=== PATIENT | female | born 1935 | race Caucasian/White ===

== ENCOUNTER 2018-01-14 08:14 | Day surgery (SDC) | payer MEDICAID, MEDICARE ==
[~2018-01-14] VITALS: Ht 172.7 cm; Wt 81.6 kg
[2018-01-14] MEDS ORDERED: MUPIROCIN 2% OINT 1 APPLIC/GM SYR NASAL SCH (09:15)
[2018-01-14] MEDS ORDERED: NS 1000 ML IV SCH (09:15)
[2018-01-14] MEDS ORDERED: SODIUM CHLORID 0.9% 500 ML IV PRN (09:15)
[2018-01-14] MEDS ORDERED: CHLORHEXIDINE GLUCONATE 2 % 1 PACK (2 CLOTHS) TOPICAL SCH (09:15)
[2018-01-14] MEDS ORDERED: POVIDONE IODINE 5% (ANTISEPSIS KIT) 4 APPLICATIONS EACH NARE SCH (09:15)
[2018-01-14] MEDS ORDERED: LORazepam 1 MG TAB SL SCH (09:15)
[2018-01-14] MEDS ORDERED: VANCOMYCIN 1000 MG/NS 250 ML IV SCH ×2 (09:15)
[2018-01-14] MEDS ORDERED: NO Heparin, Lovenox, Coumadin at least 12 hours prior to procedure. PRN (09:15)
[2018-01-14] MEDS ORDERED: LACTATED RINGER'S 1000 ML IV PRN (09:15)
[2018-01-14] MEDS ORDERED: METOPROLOL TARTRATE 25 MG TAB PO PRN (09:15)
[2018-01-14] MEDS ORDERED: POVIDONE IODINE 5% (ANTISEPSIS KIT) 4 APPLICATIONS EACH NARE PRN (09:15)
[2018-01-14] MEDS ORDERED: CHLORHEXIDINE GLUCONATE 2 % 1 PACK (2 CLOTHS) TOPICAL PRN (09:15)
[2018-01-14 09:20] VITALS: BP 165/100; PULSE 76; RESP 18; O2SAT 99
[2018-01-14 09:25] LABS: AUTOMATED NEUTROPHIL # 1.8 TH/MM3 (1.8-7.7); BASOPHIL % 0.4 % (0.0-2.0); EOSINOPHIL # 0.1 TH/MM3 (0-0.4); EOSINOPHIL % 3.1 % (0.0-4.0); HEMATOCRIT 33.9 % (35.0-46.0); HEMOGLOBIN 11.5 GM/DL (11.6-15.3); LYMPH % 28.7 % (9.0-44.0); LYMPHOCYTE # 0.9 TH/MM3 (1.0-4.8); MEAN CORPUSCULAR HEMOGLOBIN 31.9 PG (27.0-34.0); MEAN CORPUSCULAR HGB CONC 33.9 % (32.0-36.0); MEAN PLATELET VOLUME 7.5 FL (7.0-11.0); MONO % 7.7 % (0.0-8.0); MONOCYTE # 0.2 TH/MM3 (0-0.9); NEUT % 60.1 % (16.0-70.0); PLATELET COUNT 199 TH/MM3 (150-450); RED CELL DISTRIBUTION WIDTH 14.1 % (11.6-17.2)
[2018-01-14] MEDS ORDERED: APIX2.5T PO (09:28)
[2018-01-14] MEDS ORDERED: SINE25TA PO (09:28)
[2018-01-14 09:37] LABS: INTERNATIONAL NORMALIZED RATIO 1.1 RATIO; PROTHROMBIN TIME - PATIENT 10.7 SEC (9.8-11.6)
[2018-01-14 09:53] LABS: BICARBONATE 26.4 MEQ/L (21.0-32.0); CALCIUM 8.6 MG/DL (8.5-10.1); CREATININE 0.92 MG/DL (0.50-1.00)
[2018-01-14] MEDS ORDERED: PROPOFOL 200 MG/20 ML AMP IV ONE (12:00)
[2018-01-14] MEDS ORDERED: DEXAMETHASONE SOD PHOS 4 MG/ML VIAL IV ONE (12:00)
[2018-01-14] MEDS ORDERED: ONDANSETRON HCL 4 MG/2 ML VIAL IV ONE (12:00)
[2018-01-14] MEDS ORDERED: LIDOCAINE HCL 1% PF 5 ML SYRINGE OTHER ONE (12:00)
[2018-01-14] MEDS ORDERED: LIDOCAINE HCL 2% 20 ML VIAL ONE (13:06)
[2018-01-14] MEDS ORDERED: LEVOFLOXACIN 500 MG PREMIX INJ 100 ML IV ONE (13:06)
[2018-01-14] MEDS ORDERED: VANCOMYCIN 500 MG VIAL ONE (13:06)
--- NOTE | 2018-01-14 13:35 | EKG ---
Date Performed: 01/14/2018 Time Performed: 09:22:56 PTAGE: 82 years EKG: Sinus rhythm . Right bundle branch block Low QRS voltages in precordial leads Abnormal ECG NO PREVIOUS TRACING DOCTOR: Kennedy Robins Interpretating Date/Time 01/14/2018 13:34:16
--- NOTE | 2018-01-14 14:03 | PD.CARD ---
PPM GENERATOR REPLACEMENT PROCEDURE DATE: Jan 14, 2018 PPM GENERATOR REPLACEMENT PROC PROCEDURE PERFORMED Permanent pacemaker removal, permanent pacemaker replacement, pocket revision. Ms. Forman is a 82 -year-old female with history of bradycardia, pacemaker end of life referred for pacemaker generator replacement. The risks, the nature and the benefit of the procedure were clearly stated to her. The risks include pneumothorax, cardiac perforation, stroke and even . The patient understood and agreed to proceed. PROCEDURE After written informed consent was obtained, the patient was brought to the EP lab where was prepped and draped in the sterile fashion. Conscious sedation was initiated using intravenous Versed and introducer intravenous fentanyl. Once sedation was verified, the left infraclavicular area over the generator was anesthetized with 2% Xylocaine. Using a #11 scalpel, a 3 centimeter incision was made over the existing generator. Dissection was then taken down to deep fascial layer using Bovie cautery and blunt dissection. Once exposed, the generator was removed from the pocket. The pocket was expanded. Scar tissue was removed around the leads. Then, the leads were disconnected and tested. At that point, the pocket was copiously irrigated using antibiotic solution. The leads were connected to the new generator and placed into the pocket. The pacemaker was interrogated. She was A-sensing, V-pacing. I did proceed with wound closure. The deep fascial layer was approximated with 2-0 Vicryl suture in a continuous fashion. The subcutaneous layer was approximated with 2-0 Vicryl suture in a continuous fashion. Dermabond adhesive was applied to the wound followed by a sterile pressure dressing. There was no complication. The patient tolerated procedure. Blood loss minimal. EXPLANTED HARDWARE The explanted permanent pacemaker is a [employer] Model # 1290 serial number [id number]. For information about the existing leads, please refer to previous dictation. IMPLANTED HARDWARE The implanted permanent pacemaker is a [employer]) model number L311, serial number [id number]. THRESHOLDS The right atrial pacing threshold in bipolar mode was 1.1 volt at 0.4 milliseconds. Lead impedance 350 ohms and P wave at 2.7 millivolts. The right ventricular pacing threshold in bipolar mode was 0.8 volts at 0.4 milliseconds. Lead impedance 380 ohms. SETTINGS The device is set in a DDD60. Upper limit 110 beats per minute. Hysteresis and mode switch are on. CONCLUSIONS Successful permanent pacemaker removal, permanent pacemaker implantation, pocket revision. COMMENT AND RECOMMENDATIONS The patient will be transferred to the telemetry unit. She will be observed. The patient will be discharged home later on today. Brendan Ryan MD Jan 14, 2018 14:03
--- NOTE | 2018-01-14 14:06 | CATHPROC ---
Patient Name: MARIAELENA ORNELAS Study #: [id number] Initial MD: Brendan Ryan Date of : 1935 Study Date: 01/14/2018 Cardiac Catheterization Report 01/14/2018 2:08:57 PM Financial #: [id number] 1 of 8 Patient Name: MARIAELENA ORNELAS Study #: [id number] Initial MD: Brendan Ryan Date of : 1935 Study Date: 01/14/2018 Entire Case Report Patient Information Patient Name MARIAELENA ORNELAS Date of 1935 Age 82 years Financial # [id number] Gender F AlternateID Lab Number 6 Room Number DC05 Height (in) 69.0 Height (cm) 175.3 BSA 1.97 Weight (lbs) 179.5 Weight (kg) 81.6 Patient Address/Phone Number Home Address [facility] Home Phone Number [address] [facility] [address] [address] Study Information Study Number Admission Scheduled Start Study Start [id number] Jan 14 2018 8:14AM 01/14/2018 Jan 14 2018 12:40PM [place] [facility] Cardiac Pacer/ICD Admit Source Facility Department Other [facility] Physician and Clinical Staff Initial Brendan Rendon Process Control Board Operator Kathy Pereyra,JEB Process Control Board Operator Dayana Herrera RN Other Anesthesia, NIGHT WORKER Recorder Lilian Arellano,PHYSICIAN COMPENSATION ANALYST TECH2 Scrub Kathy Sauceda,RT(R) 01/14/2018 2:08:57 PM Financial #: [id number] 2 of 8 Patient Name: MARIAELENA ORNELAS Study #: [id number] Initial MD: Brendan Ryan Date of : 1935 Study Date: 01/14/2018 Equipment Time Repair Technician Description Size Mfg Part Number Used/Scraped [employer]/ EP 13:51 PACEMAKER, ACCOLADE MRI DR ADKINS L311 Used PACER DERMABOND, ADHESIVE SKIN VM12 12:52 CORDIS/PACER * Used GLUE MINI *[id number] TP-1103 12:52 MEDLINE IND[employer]RIES SUTURE, STRIP PLUS 1/2" * Used *[id number] 12:52 MEDLINE PACER SKELTON, LIMB * 2530 *[id number] Used [id number] 12:52 MEDLINE PACER PACK, PACER CUSTOM * Used *[id number] 13:16 Needle Sponge Count 2 22 Used 13:15 Needle Sponge Count 2 2 Used 13:15 Needle Sponge Count 30 1 Used SUTURE, 2-0 VICRYL [CT1] ([id number]) [id number] 12:52 [employer],WARM AIR CCL * Used *[id number] [facility] PAD, ELECTROSURGICAL 12:52 * [id number] *[id number] Used SURGICAL GROUNDING ORANGE [id number] 12:59 VITATRON MED[employer] PLASMABLADE, PEAD 3.0S * Used *[id number] Equipment Model, Serial, Lot Number and Expiration Data Description Model Number Serial Number Lot Number Expiration Date PACEMAKER, ACCOLADE MRI L311 [id number] 10-26-2019 Insurance Information Insurance Payor Private Health Insurance Third Republican Third Republican Number [employer] MEDICARE History: Current Medications Medication Dosage/Unit Route Frequency Last Date/Time Taken ELIQUIS History: Allergies Allergy Reaction Penicillins Sulfa (Sulfonamide Antibiotics) iodine 01/14/2018 2:08:57 PM Financial #: [id number] Patient Name: MARIAELENA ORNELAS Study #: [id number] Initial MD: Brendan Ryan Date of : 1935 Study Date: 01/14/2018 History: Risk Factors Family History of Dyslipidemia Previous Heart Failure Premature CAD Yes Yes Yes Cerebrovascular Peripheral Artery Disease Disease History: Arrhythmias Selection Items Atrial fibrillation History: Other Current Smoker No Labs Hgb (g/dl) Hct (%) WBC (l/cumm) Platelets (thousands) 11.60-17.00 35.00-51.00 4.00-11.00 150.00-450.00 11.0 33 3.6 199 Glucose (mg/dl) BUN (mg/dl) Creatinine (mg/dl) BUN:Creatinine (1:x) 74.00-106.00 7.00-18.00 0.50-1.30 10.00-20.00 75 21 0.9 23.3 Na (meq/l) K (meq/l) 136.00-145.00 3.50-5.10 141 4.1 INR (PTT:PT) 0.90-1.10 1.1 CPK-MB (ng/ML) 0.50-3.60 Not Drawn Medication Medication Total Dose (Bolus/Oral) Medication Total Dosage/Unit 2% XYLOCAINE 50 mL Medications (Bolus/Oral) Medication Time Given Dosage/Unit Administered By Reason 2% XYLOCAINE 01/14/2018 1:39:11 PM 50 mL Brendan Ryan 50 mL 2% XYLOCAINE given in lab by Brendan Ryan via Subcutaneous to the left upper chest. 01/14/2018 2:08:57 PM Financial #: [id number] Patient Name: MARIAELENA ORNELAS Study #: [id number] Initial MD: Brendan Ryan Date of : 1935 Study Date: 01/15/20 18 Medication (Drip) Medication Time Given Dosage/Unit Concentration/Unit Diluent (ml) Solutio n IV Solutions 01/14/2018 1:09:20 PM 0 mL (IV) 500 NaCl .9 Patient arrived on IV Solutions via Peripheral IV. Pump/Drip Flow = 20 ml/hr using NaCl .9. IV Solutions 01/14/2018 1:09:21 PM 0 mL (IV) 500 NaCl .9 Patient arrived on IV Solutions via Peripheral IV. Pump/Drip Flow = 20 ml/hr using NaCl .9. LEVAQUIN 01/14/2018 1:25:33 PM 500 mg 500 mg LEVAQUIN given in lab by Anesthesia, NIGHT WORKER in Right Antecubital via Peripheral IV. Ordered by Brendan Parnell. VANCOMYCIN DRIP 01/14/2018 1:25:52 PM 1 g 1 g VANCOMYCIN DRIP given in lab by Anesthesia, NIGHT WORKER in Right Antecubital via Peripheral IV. Ordered by Brendan Ryan. Initial Case Assessment Cardiovascular HR Rhythm Chest Pain 68 sr 0 Neurological State Oriented to time-place- Alert Moves all extremities person Respiration - General Respiration Rate SpO2 (%) (B/min) 10 100 Final Case Assessment Cardiovascular HR NIBP Chest Pain 68 152/73 0 Respiration - General Respiration Rate SpO2 (%) (B/min) 12 100 Vitals Summary Pain Time HR NIBP SpO2 Resp Temp EtCO2 Apnea Deon Carreon Comment Level 13:38:32 62 108/62 99.0 12 Chronological Log Time Study Chronological Log 12:50:46 Patient arrived via Bed. 12:50:47 Patient Name, D.O.B, / Armband Verified By R.N. 12:50:49 Consent signed by the physician and the patient and verified by the [facility] staff. 01/14/2018 2:08:57 PM Financial #: [id number] 5 of 8 Patient Name: MARIAELENA ORNELAS Study #: [id number] Initial MD: Brendan Ryan Date of : 1935 Study Date: 01/14/2018 12:50:51 Pre-op and post- op instructions given; patient acknowledges understanding of instructions. 12:50:52 Verbal Stimulation=2 Physical Stimulation=2 Airway=2 Respiration=2 TOTAL=8. (0=absent, 1=li mited, 2=present) 12:52:58 Presedation assessment performed by [facility] RN. 12:53:00 Patient has been NPO for More than 6Hrs. 12:53:01 Skin Breakdown-general redness/rash 12:53:04 Disposable Defibrillator Pads Placed On Patient. 12:53:05 Tatiana Prominences Protected 12:53:09 Bovie ground pad applied to: right upper thigh 12:53:19 2% CHLORHEXIDINE GLUCONATE WASH AND NASAL SWIPE DONE PRIOR TO PROCEDURE. 13:00:40 Anesthesia at bedside. ROCK Seaman Assumes care of patient. 13:07:28 Lead placement verified under fluoroscopy 13:09:19 A # 20 IV was noted in the Antecubital (left). Grade = 0 13:09:20 Patient arrived on IV Solutions via Peripheral IV. Pump/Drip Flow = 20 ml/hr using NaCl .9. 13:09:20 A # 20 IV was noted in the Antecubital (right). Grade = 0 13:09:21 Patient arrived on IV Solutions via Peripheral IV. Pump/Drip Flow = 20 ml/hr using NaCl .9. 13:09:23 History and physical on the chart or being dictated. Assessment: Initial Case, HR=68 BPM, Rhythm=sr, Chest Pain=0 13:09:26 Neurological: State=Alert, Ox3, EMMANUEL Respiration: Resp=10 B/min, AvN9=288 % 13:09:29 Right and Left Upper Chest Prepped and draped after a 3 minute dry time. 13:13:36 Reference ECG taken First Sponge And Instrument Count Done by Kathy Sauceda, (R). 13:15:00 Hypo's: 2, Sponges: 30, Bovie/scratch: 2 Sutures: 10, Blades: 1, Instruments: 26, Syveck Patches: 0 Verified by JEB Carmona 13:20:41 Dr. Cooney arrived to oversee LMA placement. 13:23:43 LMA placed. 13:25:33 500 mg LEVAQUIN given in lab by Anesthesia, NIGHT WORKER in Right Antecubital via Peripheral IV. Or dered by Brendan Ryan. 1 g VANCOMYCIN DRIP given in lab by Anesthesia, NIGHT WORKER in Right Antecubital via Peripheral IV. Or dered by Shelby, 13:25:52 Brendan. 13:33:56 MD paged 13:36:36 MD arrived. 13:38:32 HR=62 bpm, FLBN=623/62 mmhg, SpO2=99 %, Resp=12 B/min Time Out. Correct patient, procedure, procedure equipment, site and side verified with physicia n present. Time 13:39:01 concurred by MD, individual staff and NIGHT WORKER. Time Out #2 - Consents verified, patient in correct position, all results are labled and displa yed, safety precautions 13:39:02 taken, antibiotics administered. Time out concurred by MD, individual staff and NIGHT WORKER in procedu re 13:39:09 Case Start 13:39:11 50 mL 2% XYLOCAINE given in lab by Brendan Ryan via Subcutaneous to the left upper chest. 13:40:21 Surgical Incision Made with plasma blade. 01/14/2018 2:08:57 PM Financial #: [id number] 6 of 8 Patient Name: MARIAELENA ORNELAS Study #: [id number] Initial MD: Brendan Ryan Date of : 1935 Study Date: 01/14/2018 13:40:46 A pocket was opened at the L Upper Chest. 13:41:03 A device was explanted. 13:41:56 A PACEMAKER, ACCOLADE MRI DR JED was connected and placed in the pocket. 13:42:24 Pocket flushed with antibiotic solution 13:44:51 The device was sutured to the fascia. 13:45:44 Closing the pocket. Second Sponge And Instrument Count Done by Brendan Ryan. 13:46:49 Hypo's: 2, Sponges: 30, Bovie/scratch: 2 Sutures: ~SUTURE~, Blades: 1, Instruments: 26, Syveck Patches: 0 13:49:30 The pocket was closed. 13:49:58 Case End 13:50:17 Dermbond applied to site. The Final Sponge And Instrument Count Done by Brendan Ryan. 13:52:20 Hypo's: 2, Sponges: 30, Bovie/scratch: 2 Sutures: 10, Blades: 1, Instruments: 26, Syveck Patches: 0 Assessment: Final Case, HR=68 BPM, WBEQ=624/73 mmhg, Chest Pain=0 13:52:45 Respiration: Resp=12 B/min, WsD8=222 % 13:53:27 No case complications noted. 13:53:29 Cine recording checked. 13:54:43 Implantable Device card placed in patient's chart. 13:54:44 Bedside Report will be given. 13:55:05 Steri-strips and a sterile dressing applied to site. The Final Sponge And Instrument Count Done by Brendan Ryan. 13:55:31 Hypo's: 2, Sponges: 30, Bovie/scratch: 2 Sutures: 10, Blades: 1, Instruments: 26, Syveck Patches: 0 13:58:06 PACU called. Spoke to Lawanda 14:00:11 Implant Procedure was performed. 14:00:19 A PPM Implant . (Dual) 14:00:37 Implantable Device card placed in patient's chart. 14:00:46 LMA removed 14:04:35 Patient moved to bed 14:05:15 Patient transported to PACU. End Study - Contrast Media Used In Study Contrast Total Opened (mL) Total Used (mL) Total Wasted (mL) Unspecified 0 0 0 01/14/2018 2:08:57 PM Financial #: [id number] 7 of 8 Patient Name: MARIAELENA ORNELAS Study #: [id number] Initial MD: Brendan Ryan Date of : 1935 Study Date: 01/14/2018 End Study - Maximum Contrast Load Max Contrast Load (mL) 453.3 End Study - Radiation Exposure Fluoro Time (minutes) 0.1 End Study - Patient Disposition Complications Transferred To Interventional Outcome No Critical Care Bed successful 01/14/2018 2:08:57 PM Financial #: [id number]
[2018-01-14] MEDS ORDERED: TYLETAB34 PO (14:07)
[2018-01-14] MEDS ORDERED: LEVA500T33 PO (14:07)
[2018-01-14] MEDS ORDERED: ONDANSETRON HCL 4 MG/2 ML VIAL IV PUSH PRN (14:15)
[2018-01-14] MEDS ORDERED: DO NOT ADM ANY ANTICOAGULANT DRUGS PRN (14:15)
[2018-01-14] MEDS ORDERED: SODIUM CHLORIDE 0.9% FLUSH 10 ML FLUSH IV FLUSH PRN (14:15)
[2018-01-14 14:42] VITALS: BP 156/74; PULSE 71; RESP 14; TEMP 97.6; O2SAT 97
[2018-01-14] MEDS ORDERED: SODIUM CHLORIDE 0.9% FLUSH 10 ML FLUSH IV FLUSH SCH (21:00)
--- NOTE | 2018-01-14 23:37 | EKG ---
Date Performed: 01/14/2018 Time Performed: 14:27:53 PTAGE: 82 years EKG: Sinus rhythm POSSIBLE RIGHT VENTRICULAR CONDUCTION DELAY BORDERLINE ECG PREVIOUS TRACING : 01/14/2018 09.22 Since the previous tracing, no significant change noted DOCTOR: Elio Joyce Interpretating Date/Time 01/14/2018 23:35:54
== END 2018-01-14 17:23 ==
LOC: HDOC 08:14 → HDIC 08:16 → HDOC 17:23
PROVIDERS: ATTEND Internal Medicine Interventional Cardiology
DX: Z45.010 Encounter for checking and testing of cardiac pacemaker pulse generator [battery] (principal); I11.0 Hypertensive heart disease with heart failure; I50.9 Heart failure, unspecified; I48.91 Unspecified atrial fibrillation; R06.02 Shortness of breath; R53.83 Other fatigue; G20 Parkinson's disease; Z86.73 Personal history of transient ischemic attack (TIA), and cerebral infarction without residual deficits; Z87.891 Personal history of nicotine dependence
CPT/HCPCS: 00400; 33228; 80048; 85025; 85610; 85730; 86850; 86900; 86901; 93005; C1785; J1100; J1956; J2405; J3010; J3370